=== PATIENT | male | born 1960 | race Caucasian/White ===

== ENCOUNTER 2016-08-13 16:55 | Emergency (ER) | payer OTHER, MEDICAID ==
[2016-08-13 17:06] VITALS: BP 108/77; PULSE 110; RESP 20; TEMP 98.1; O2SAT 94
[2016-08-13] MEDS ORDERED: TDAP ADULT 0.5 ML INJ (BOOSTRIX) IM ONE (17:56)
--- NOTE | 2016-08-13 17:56 | EDPHY ---
General Narrative: CHIEF COMPLAINT: Finger laceration HISTORY OF PRESENT ILLNESS: laceration to the left ring finger that occurred at 12:30 p.m. today. This was while opening a can of coffee. It was on the metal rim. Laceration involving the tuft of the left ring finger on the volar side. [id number] pain. No pain at rest. Worse with palpation and movement. Does not radiate. No numbness or tingling. No flexor deficits. He is only applied pressure and no other treatment. No other associated complaints or modifying factors. Tetanus status is uncertain. 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 REVIEW OF SYSTEMS: Ten systems reviewed and are negative unless otherwise noted in the HPI EXAMINATION General Appearance: Alert, no distress, unkempt Cardiovascular: Pulses normal throughout With symmetric radial pulses 2+. Brisk cap refill Neurological: A&O, sensory symmetric, strength symmetric Skin: Warm and dry . There is a curvilinear laceration over the left ring finger volar. Approximately 1.25 cm total and reactive no foreign body. Brisk cap refill and neuro intact. Extremities: Mild tenderness to palpation of the left ring finger. There is full flexion including the superficialis and profundus. No foreign body in the wound bed. Neurovascular intact. Psychiatric: Mood and affect normal MDM: 5:55 p.m. laceration of the tuft of the left ring finger, volar. This was by cough began approximately 5 hours ago. There is dried blood around the wound but no foreign body appreciated. No glass involved. Neurovascular intact with full flexion extension of the finger and good sensation. I have applied a digital block. We will irrigate the wound and suture repair. 6:25 p.m. finger tip laceration that has been closed without complication. I discussed wound care with the patient. He will be placed into gauze. He will follow up here or at [facility] for suture removal in 7-10 days. Return here for any signs of infection as discussed. Ibuprofen as needed every 6-8 hours for pain after the anesthesia wears off. Discharged home neurovascular intact after the procedure and in good condition. PROCEDURE: Digital Block Indication: Finger laceration Consent: Verbal Location:Left ring finger Anesthesia: Lidocaine 1% plain, 0.25% Marcaine plain, 5mL Description: after the skin was prepped with chlorhexidine wipe, 5 mL above were infused. There is good anesthesia. Good hemostasis. Neurovascular intact after the procedure. Complications: None PROCEDURE: Laceration repair Consent: Verbal Location: The left ring finger tuft, volar Length of repair: 1.25 cm Complexity: simple Layer involvement: single Anesthesia: digital block as above Irrigation: Extensive Debridement: none Procedure description: after digital block anesthesia, the wound was irrigated in the wound bed was explored. No foreign body. The wound was then closed with 5-0 Ethilon simple interrupted sutures. Good hemostasis. Good approximation. Tolerated well without complication. Suture/Staple material: 5-0 ethilon, Five simple interrupted sutures Wound care: Routine as discussed Suture/Staple removal: 7-10 Days ED Precautions: Worsening pain. Erythema, edema, cyanosis, pallor, paresthesia or anesthesia. SUPERVISION: This patient was independently evaluated without the aide of supervising physician. - History Smoking Status: Current every day smoker - Objective Vital Signs: Initial Vital Signs Temperature (C) 98.1 F 08/13/16 17:00 Heart Rate 110 H 08/13/16 17:00 Respiratory Rate 20 08/13/16 17:00 Blood Pressure 108/77 08/13/16 17:00 O2 Sat (%) 94 08/13/16 17:00 Allergies/Adverse Reactions: divalproex sodium [From Depakote ER] Allergy (Unknown, Verified 05/27/13 09:55) Unknown haloperidol [From Haldol] Allergy (Unknown, Verified 05/27/13 09:55) Unknown haloperidol lactate [From Haldol] Allergy (Unknown, Verified 05/27/13 09:55) Unknown loxapine HCl [From Loxitane] Allergy (Unknown, Verified 05/27/13 09:55) Unknown loxapine succinate [From Loxitane] Allergy (Unknown, Verified 05/27/13 09:55) Unknown penicillin V potassium [From Pen-Vee K] Allergy (Unknown, Verified 05/27/13 09: 55) Unknown Home Medications: Medication Instructions Recorded cloZAPine [Clozaril (*)] 200 mg PO DAILY #60 tab 06/12/15 cloZAPine [Clozaril (*)] 400 mg PO DAILY@1600 #120 tab 06/12/15 lamoTRIgine [LamICTAL 100 MG (*)] 100 mg PO 0900,1600 #60 tab 06/12/15 Ibuprofen 600 mg PO Q8 PRN #15 tablet 08/13/16 Departure - Departure Disposition: Home, Routine, Self-Care Clinical Impression: Finger laceration Qualifiers: Encounter type: initial encounter Qualified Code(s): S61.219A - Laceration without foreign body of unspecified finger without damage to nail, initial encounter Condition: Good Instructions: Ibuprofen (By mouth), Care For Your Stitches (ED), Laceration (ED ) Additional Instructions: Follow-up with [facility] or here in 7-10 days for suture removal. Return sooner for signs of infection as discussed. Referrals: NONE *PRIMARY CARE P,. [Primary Care Provider] - As per Instructions [facility],. [Clinic] - As per Instructions Prescriptions: Ibuprofen 600 mg PO Q8 PRN #15 tablet PRN Reason: Pain, Mild
[2016-08-13] MEDS ORDERED: IBUPROFEN 600 MG TAB PO ONE (18:23)
== END 2016-08-13 18:39 | disposition home or self-care (01) ==
PROC: 0HQGXZZ Repair Left Hand Skin, External Approach (ICD-10-PCS; principal; 2016-08-13)
DX: S61.215A Laceration without foreign body of left ring finger without damage to nail, initial encounter (principal); F17.200 Nicotine dependence, unspecified, uncomplicated; Z23 Encounter for immunization; W45.8XXA Other foreign body or object entering through skin, initial encounter

== ENCOUNTER 2018-02-24 06:57 | Emergency (ER) | payer OTHER, MEDICAID ==
--- NOTE | 2018-02-24 07:09 | EDPHY ---
H & P Time Seen by Provider: 02/24/18 07:05 HPI/ROS: CHIEF COMPLAINT: "I hurt all over" HISTORY OF PRESENT ILLNESS: The patient is brought into the emergency department by paramedics. The patient was found laying in the hallway with malaise and fatigue. The patient has schizophrenia. EMS reported ? CO detected on his pulse oximetry. According to the fire department there was no elevated CO levels at the department. The patient denies any history of fall or trauma. He reports having "pain all over" which she attributes to soak that he purchased at [employer]. The patient denies any additional acute complaints. REVIEW OF SYSTEMS: A comprehensive 10 point review of systems is otherwise negative aside from elements mentioned in the history of present illness. Source: Patient Exam Limitations: No limitations - Medical/Surgical History Hx Asthma: No Hx Chronic Respiratory Disease: No Hx Diabetes: No Hx Cardiac Disease: No Hx Renal Disease: No Hx Cirrhosis: No Hx Alcoholism: No Hx HIV/AIDS: No Hx Splenectomy or Spleen Trauma: No Other PMH: Schizophrenia - Social History Smoking Status: Current every day smoker - Physical Exam Exam: General Appearance: Disheveled, cachectic Eyes: Pupils equal and round no pallor or injection ENT, Mouth: Poor dentition Respiratory: There are no retractions, lungs are clear to auscultation Cardiovascular: Regular rate and rhythm Gastrointestinal: Abdomen is soft and nontender, no masses, bowel sounds normal Neurological: Grossly normal motor exam Skin: Warm and dry, no rashes Musculoskeletal: Neck is supple nontender Extremities: symmetrical, full range of motion Psychiatric: Patient is oriented X 3, there is no agitation Constitutional: Initial Vital Signs Temperature (C) 36.7 C 02/24/18 07:03 Heart Rate 85 02/24/18 07:03 Respiratory Rate 20 02/24/18 07:03 Blood Pressure 111/70 02/24/18 07:03 O2 Sat (%) 99 02/24/18 07:03 O2 Delivery Mode Room Air O2 (L/minute) 15 Allergies/Adverse Reactions: divalproex sodium [From Depakote ER] Allergy (Unknown, Verified 02/24/18 07:03) Unknown haloperidol [From Haldol] Allergy (Unknown, Verified 02/24/18 07:03) Unknown haloperidol lactate [From Haldol] Allergy (Unknown, Verified 02/24/18 07:03) Unknown loxapine HCl [From Loxitane] Allergy (Unknown, Verified 02/24/18 07:03) Unknown loxapine succinate [From Loxitane] Allergy (Unknown, Verified 02/24/18 07:03) Unknown penicillin V potassium [From Pen-Vee K] Allergy (Unknown, Verified 02/24/18 07: 03) Unknown Home Medications: Medication Instructions Recorded cloZAPine [Clozaril (*)] 200 mg PO DAILY #60 tab 06/12/15 cloZAPine [Clozaril (*)] 400 mg PO DAILY@1600 #120 tab 06/12/15 lamoTRIgine [LamICTAL 100 MG (*)] 100 mg PO 0900,1600 #60 tab 06/12/15 Ibuprofen 600 mg PO Q8 PRN #15 tablet 08/13/16 Medical Decision Making ED Course/Re-evaluation: The patient presents to the ED with for evaluation of generalized weakness. There is a questionable finding of a elevated carboxyhemoglobin noted on oximetry with EMS. Patient was noted to have a normal carboxyhemoglobin consistent with his known smoking status. Workup in the emergency department demonstrated only evidence of mild dehydration with a slightly elevated BUN. Patient had no evidence of significant metabolic derangement. The patient was given a meal in the emergency department. He is drinking without any vomiting. He is ambulatory. The patient will be discharged from the emergency department. He does have a history of schizophrenia. We did contact [facility]. They will make arrangements to pick the patient up as he does have an appointment with his prescriber today. Differential Diagnosis: Differential diagnosis considered includes febrile illness, dehydration, metabolic derangement, anemia, carboxyhemoglobinemia - Data Points Laboratory Results: Laboratory Results 02/24/18 06:40 02/24/18 06:40 02/24/18 02/24/18 02/24/18 07:00 06:40 06:40 WBC 5.63 10^3/uL 10^3/uL (3.80-9.50) RBC 4.93 10^6/uL 10^6/uL (4.40-6.38) Hgb 15.8 g/dL g/dL (13.7-17.5) Hct 45.2 % % (40.0-51.0) MCV 91.7 fL fL (81.5-99.8) MCH 32.0 pg pg (27.9-34.1) MCHC 35.0 g/dL g/dL (32.4-36.7) RDW 13.9 % % (11.5-15.2) Plt Count 167 10^3/uL 10^3/uL (150-400) MPV 11.3 fL fL (8.7-11.7) Neut % (Auto) 62.5 % % (39.3-74.2) Lymph % (Auto) 20.1 % % (15.0-45.0) Fannin % (Auto) 16.0 % H % (4.5-13.0) Eos % (Auto) 0.0 % L % (0.6-7.6) Baso % (Auto) 0.5 % % (0.3-1.7) Nucleat RBC Rel Count 0.0 % % (0.0-0.2) Absolute Neuts (auto) 3.52 10^3/uL 10^3/uL (1.70-6.50) Absolute Lymphs (auto) 1.13 10^3/uL 10^3/uL (1.00-3.00) Absolute Monos (auto) 0.90 10^3/uL H 10^3/uL (0.30-0.80) Absolute Eos (auto) 0.00 10^3/uL L 10^3/uL (0.03-0.40) Absolute Basos (auto) 0.03 10^3/uL 10^3/uL (0.02-0.10) Absolute Nucleated RBC 0.00 10^3/uL 10^3/uL (0-0.01) Immature Gran % 0.9 % % (0.0-1.1) Immature Gran # 0.05 10^3/uL 10^3/uL (0.00-0.10) Carboxyhemoglobin 2.8 % H % (0-1.5) Sodium 138 mEq/L mEq/L (135-145) Potassium 3.7 mEq/L mEq/L (3.3-5.0) Chloride 98 mEq/L mEq/L (97-110) Carbon Dioxide 28 mEq/l mEq/l (22-31) Anion Gap 12 mEq/L mEq/L (8-16) BUN 41 mg/dL H mg/dL (7-23) Creatinine 1.3 mg/dL mg/dL (0.7-1.3) Estimated GFR 57 Glucose 140 mg/dL H mg/dL (70-100) Calcium 10.0 mg/dL mg/dL (8.5-10.4) Departure - Departure Disposition: Home, Routine, Self-Care Clinical Impression: Dehydration, Schizophrenia Condition: Good Instructions: Dehydration (ED) Additional Instructions: 1. Please try and increase your fluid intake. 2. Please follow up with your primary care provider as scheduled. 3. Please return to the emergency department for markedly worsening symptoms or other concerns. Referrals: [facility],. [Clinic] - As per Instructions
[2018-02-24 07:18] LABS: PLATELET COUNT 167 10^3/uL (150-400)
[2018-02-24 08:27] VITALS: BP 95/70
== END 2018-02-24 08:51 | disposition home or self-care (01) ==
LOC: EDUNIT#
DX: R53.81 Other malaise (principal); R53.83 Other fatigue; F20.9 Schizophrenia, unspecified; E86.0 Dehydration; F17.200 Nicotine dependence, unspecified, uncomplicated

== ENCOUNTER 2018-08-10 11:01 | Inpatient (IN) | payer OTHER, MEDICAID ==
[2018-08-10] MEDS ORDERED: NS 1,000 ML IV ONE (11:54)
[2018-08-10] MEDS ORDERED: methylPREDNISolone SOD SUCC 125 MG/2 ML VIAL IVP ONE (11:59)
[2018-08-10] MEDS ORDERED: IPRATROPIUM/ALBUTEROL 3 ML DEYVIAL IH ONE (11:59)
[2018-08-10] MEDS ORDERED: NS 2,100 ML IV ONE (12:07)
--- NOTE | 2018-08-10 12:07 | EDPHY ---
H & P Stated Complaint: cough, hypoxia Time Seen by Provider: 08/10/18 11:53 HPI/ROS: CHIEF COMPLAINT: Cough, shortness of breath HISTORY OF PRESENT ILLNESS: 57-year-old male with schizophrenia presents with cough and shortness of breath. Onset of a productive cough 2 weeks ago, gradually worsening. Now associated with shortness of breath and chills. Shortness of breath at rest, increases with exertion. No documented fever. No sore throat or runny nose. Unsure if he received a flu vaccination this year. REVIEW OF SYSTEMS: complete 10 point ROS reviewed and is negative except for the noted elements in the HPI Source: Patient - Personal History Current Tetanus/Diphtheria Vaccine: Unsure - Medical/Surgical History Hx Asthma: No Hx Chronic Respiratory Disease: No Hx Diabetes: No Hx Cardiac Disease: No Hx Renal Disease: No Hx Cirrhosis: No Hx Alcoholism: No Hx HIV/AIDS: No Hx Splenectomy or Spleen Trauma: No Other PMH: Schizophrenia - Social History Smoking Status: Current every day smoker Alcohol Use: Sober Drug Use: None Additional Social History: homeless - Physical Exam Exam: General Appearance: Alert, pleasant, appears fatigued, disheveled Eyes: Pupils equal and round, no conjunctival pallor ENT, Mouth: Mucous membranes slightly dry Neck: Normal inspection Respiratory: tachypnea, diffuse expiratory wheezing Cardiovascular: Regular tachycardia Gastrointestinal: Abdomen is soft and nontender Neurological: A&O, nonfocal exam Skin: Warm and dry, no rash Extremities: Nontender, no pedal edema Psychiatric: odd affect Constitutional: Initial Vital Signs Temperature (C) 37.1 C 08/10/18 11:06 Heart Rate 114 H 08/10/18 11:06 Respiratory Rate 24 H 08/10/18 11:06 Blood Pressure 90/71 L 08/10/18 11:06 O2 Sat (%) 78 L 08/10/18 11:06 O2 Delivery Mode Oxymask O2 (L/minute) 5 Allergies/Adverse Reactions: divalproex sodium [From Depakote ER] Allergy (Unknown, Verified 08/10/18 11:05) Unknown haloperidol [From Haldol] Allergy (Unknown, Verified 08/10/18 11:05) Unknown haloperidol lactate [From Haldol] Allergy (Unknown, Verified 08/10/18 11:05) Unknown loxapine HCl [From Loxitane] Allergy (Unknown, Verified 08/10/18 11:05) Unknown loxapine succinate [From Loxitane] Allergy (Unknown, Verified 08/10/18 11:05) Unknown penicillin V potassium [From Pen-Vee K] Allergy (Unknown, Verified 08/10/18 11: 05) Unknown Home Medications: Medication Instructions Recorded cloZAPine [Clozaril (*)] 300 mg PO DAILY 08/10/18 cloZAPine [Clozaril (*)] 350 mg PO HS 08/10/18 fluPHENAZine HCL [FLUPHENAZINE HCL] 10 mg PO DAILY 08/10/18 fluPHENAZine HCL [FLUPHENAZINE HCL] 15 mg PO HS 08/10/18 lamoTRIgine [LamICTAL 100 MG (*)] 100 mg PO BID 08/10/18 metFORMIN HCL [Glucophage 500 mg 500 mg PO BIDMEAL 08/10/18 (*)] Medical Decision Making - Diagnostics Imaging Results: CXR: BLL pneumonia Imaging: Discussed imaging studies w/ scallop shucker Radiologist ED Course/Re-evaluation: This patient presents with cough, subjective fever and hypoxia. Initial O2 sat 78%, placed on an oximask; repeat O2 sat 94%. On exam he has diffuse wheezing. A DuoNeb and Solu-Medrol 125 mg IV given. Improved air exchange and diminished wheezing after the duoneb. Chest x-ray reveals BLL infiltrates. Rocephin and Zithromax IV given. He meets SIRS criteria with tachycardia and tachypnea. Initial lactate is 0.8, repeat lactate 1.2. Initial BP 90/71, borderline hypotension, IV NS given per the sepsis protocol, after which pt's SBP 120's. The hospitalist service was consulted for admission. This pt utilized 35 minutes of critical care time exclusive of unbundled procedures. Brice spent in serial assessments, lab/imaging/medication ordering, discussion with consultants. Organ at risk: lungs Differential Diagnosis: includes though not limited to pulm edema, empyema, PE, acute bronchitis - Data Points Laboratory Results: Laboratory Results 08/10/18 11:31 08/10/18 11:31 Microbiology Results: MICROBIOLOGY 08/10/18 11:31 Blood Blood Culture - Preliminary 08/10/18 12:04 Blood Blood Culture - Preliminary Medications Given: Acetaminophen (Tylenol) 650 mg PO Q4HRS PRN PRN Reason: Pain, Mild/Fever, Can Take PO Stop: 02/06/19 12:19 Last Admin: 08/13/18 02:00 Dose: 650 mg Albuterol/Ipratropium (Duoneb) 3 ml IH QID [facility] Stop: 02/06/19 15:59 Last Admin: 08/13/18 11:13 Dose: 3 ml Azithromycin (Zithromax) 250 mg PO DAILY [facility] PRN Reason: Protocol Stop: 09/12/18 08:59 Last Admin: 08/13/18 08:34 Dose: 250 mg Clozapine (Clozaril) 300 mg PO DAILY [facility] Stop: 02/07/19 08:59 Last Admin: 08/13/18 08:34 Dose: 300 mg Clozapine (Clozaril) 350 mg PO HS [facility] Stop: 02/07/19 20:59 Last Admin: 08/12/18 21:33 Dose: 350 mg Enoxaparin Sodium (Lovenox) 40 mg SC DAILY [facility] Stop: 02/07/19 08:59 Last Admin: 08/13/18 08:35 Dose: 40 mg Fluphenazine HCl (Prolixin) 10 mg PO DAILY [facility] Stop: 02/07/19 08:59 Last Admin: 08/13/18 08:35 Dose: 10 mg Fluphenazine HCl (Prolixin) 15 mg PO HS [facility] Stop: 02/06/19 20:59 Last Admin: 08/12/18 21:34 Dose: 15 mg Insulin Human Lispro (Humalog Lispro) 0 unit SC TIDMEAL [facility] PRN Reason: Protocol Stop: 02/07/19 07:59 Last Admin: 08/13/18 12:20 Dose: Not Given Lamotrigine (Lamictal) 100 mg PO BID [facility] Stop: 02/06/19 20:59 Last Admin: 08/13/18 08:34 Dose: 100 mg Lorazepam (Ativan Injection) 0.5 - 1 mg IVP Q6HRS PRN PRN Reason: Nausea/Vomiting, Use 2nd Stop: 02/07/19 22:34 Last Admin: 08/12/18 04:42 Dose: 0.5 mg Nicotine (Nicoderm Cq) 14 mg TD DAILY [facility] Stop: 02/06/19 14:29 Last Admin: 08/13/18 08:35 Dose: 14 mg Prednisone (Prednisone) 40 mg PO DAILY [facility] Stop: 02/09/19 08:59 Last Admin: 08/13/18 08:35 Dose: 40 mg Fluticasone/Salmeterol (Advair) 1 puffs IH BID [facility] Stop: 02/08/19 20:59 Last Admin: 08/13/18 11:07 Dose: 1 puffs Discontinued Medications Albuterol/Ipratropium (Duoneb) 3 ml IH EDNOW ONE Stop: 08/10/18 12:00 Last Admin: 08/10/18 12:28 Dose: 3 ml Azithromycin (Zithromax) 500 mg PO ONCE ONE PRN Reason: Protocol Stop: 08/12/18 16:41 Last Admin: 08/12/18 17:48 Dose: 500 mg Sodium Chloride (Ns) 1,000 mls @ 0 mls/hr IV ONCE ONE; Wide Open PRN Reason: Protocol Stop: 08/10/18 11:55 Last Admin: 08/10/18 12:34 Dose: Not Given Sodium Chloride (Ns) 2,100 mls @ 4,200 mls/hr 30 ml/kg infuse over 30 min ( 2100 ml) IV EDNOW ONE PRN Reason: Protocol Stop: 08/10/18 12:36 Last Admin: 08/10/18 12:31 Dose: 2,100 mls Azithromycin 500 mg/ Sodium (Chloride) 255 mls @ 255 mls/hr IV EDNOW ONE PRN Reason: Protocol Stop: 08/10/18 13:08 Last Admin: 08/10/18 12:43 Dose: 255 mls Ceftriaxone Sodium/Dextrose (Rocephin 1 Gm (Premix)) 50 mls @ 100 mls/hr IV EDNOW ONE PRN Reason: Protocol Stop: 08/10/18 12:37 Last Admin: 08/10/18 12:19 Dose: 50 mls Sodium Chloride (Ns) 1,000 mls @ 75 mls/hr IV CONT [facility] Stop: 02/06/19 12:29 Last Admin: 08/12/18 01:46 Dose: 1,000 mls Methylprednisolone Sodium Succinate (Solu-Medrol) 125 mg IVP EDNOW ONE Stop: 08/10/18 12:00 Last Admin: 08/10/18 12:22 Dose: 125 mg Methylprednisolone Sodium Succinate (Solu-Medrol) 60 mg IVP Q6HRS [facility] Stop: 08/12/18 19:00 Last Admin: 08/12/18 17:47 Dose: 60 mg Ondansetron HCl (Zofran) 4 mg IVP Q4HRS PRN PRN Reason: Nausea/Vomiting, Can't Take PO Stop: 02/06/19 12:19 Last Admin: 08/11/18 21:16 Dose: 4 mg Ondansetron HCl (Zofran Odt) 4 mg PO Q4HRS PRN PRN Reason: Nausea/Vomiting, Use 1st Stop: 02/06/19 12:19 Last Admin: 08/11/18 19:15 Dose: 4 mg Departure - Departure Disposition: [facility]
[2018-08-10] MEDS ORDERED: AZITHROMYCIN IV 500 MG in NS 250 ML IV ONE (12:09)
[2018-08-10 12:12] LABS: PLATELET COUNT 213 10^3/uL (150-400)
[2018-08-10] MEDS ORDERED: ONDANSETRON 4 MG/2 ML VIAL IVP PRN (12:20)
[2018-08-10] MEDS ORDERED: ONDANSETRON DISINTEGRATING 4 MG TAB PO PRN (12:20)
[2018-08-10] MEDS ORDERED: ALBUTEROL 3 ML DEYVIAL IH PRN (12:20)
[2018-08-10] MEDS: NICOTINE 14 MG/24 HR PATCH TD SCH (14:33)
--- NOTE | 2018-08-10 15:27 | PDGENHP ---
History and Physical - Chief Complaint Shortness of breath - History of Present Illness 57-year-old male past medical history of tobacco abuse, schizophrenia presented to the ER with complaints of shortness of breath which had been ongoing for at least the last week and half. He says that over the last 10-15 days he has had increased shortness of breath. He has an intermittent cough which is mostly dry. He denies any chest pain. He did endorse subjective fevers and chills. No recent sick contacts. No recent travel. He continues to smoke tobacco. History Information - Allergies/Home Medication List Allergies/Adverse Reactions: divalproex sodium [From Depakote ER] Allergy (Unknown, Verified 08/10/18 11:05) Unknown haloperidol [From Haldol] Allergy (Unknown, Verified 08/10/18 11:05) Unknown haloperidol lactate [From Haldol] Allergy (Unknown, Verified 08/10/18 11:05) Unknown loxapine HCl [From Loxitane] Allergy (Unknown, Verified 08/10/18 11:05) Unknown loxapine succinate [From Loxitane] Allergy (Unknown, Verified 08/10/18 11:05) Unknown penicillin V potassium [From Pen-Vee K] Allergy (Unknown, Verified 08/10/18 11: 05) Unknown Home Medications: cloZAPine [Clozaril (*)] 300 mg PO DAILY 08/10/18 [Last Taken Unknown] cloZAPine [Clozaril (*)] 350 mg PO DAILY 08/10/18 [Last Taken Unknown] fluPHENAZine HCL [FLUPHENAZINE HCL] 10 mg PO DAILY 08/10/18 [Last Taken Unknown] fluPHENAZine HCL [FLUPHENAZINE HCL] 15 mg PO HS 08/10/18 [Last Taken Unknown] lamoTRIgine [LamICTAL 100 MG (*)] 100 mg PO BID 08/10/18 [Last Taken Unknown] metFORMIN HCL [Glucophage 500 mg (*)] 500 mg PO BIDMEAL 08/10/18 [Last Taken Unknown] I have personally reviewed and updated: family history, medical history, social history, surgical history - Past Medical History Additional medical history: schizophrenia - Surgical History Reports: no pertinent surgical hx - Family History Positive for: non-pertinent - Social History Smoking Status: Current every day smoker Review of Systems Review of Systems: ROS: 10pt was reviewed & negative except for what was stated in HPI & below Physical Exam Physical Exam: Temp Pulse Resp BP Pulse Ox 37.1 C 97 20 127/87 H 92 08/10/18 14:04 08/10/18 14:04 08/10/18 14:04 08/10/18 14:04 08/10/18 14:04 O2 (L/minute) 5 Constitutional: no apparent distress, appears nourished, not in pain Eyes: PERRL, anicteric sclera, EOMI Ears, Nose, Mouth, Throat: moist mucous membranes, hearing normal, ears appear normal, no oral mucosal ulcers Cardiovascular: regular rate and rhythym, no murmur, rub, or gallop, No edema Respiratory: reduced air movement, expiratory wheeze, inspiratory crackles Gastrointestinal: normoactive bowel sounds, soft, non-tender abdomen, no palpable masses Genitourinary: no bladder fullness, no bladder tenderness Skin: warm, normal color, no rashes or abrasions, no fluctuance, no induration, No mottled Musculoskeletal: full muscle strength, no muscle tenderness, normal joint ROM, no joint effusions Psychiatric: interacting appropriately, not anxious, not encephalopathic, thought process linear Lymph, Heme, Immunologic: no cervical LAD, no supraclavicular LAD Lab Data & Imaging Review 08/10/18 11:31 08/10/18 11:31 WBC 11.12 10^3/uL (3.80-9.50) H 08/10/18 11:31 RBC 4.43 10^6/uL (4.40-6.38) 08/10/18 11:31 Hgb 13.7 g/dL (13.7-17.5) 08/10/18 11:31 Hct 41.8 % (40.0-51.0) 08/10/18 11:31 MCV 94.4 fL (81.5-99.8) 08/10/18 11:31 MCH 30.9 pg (27.9-34.1) 08/10/18 11:31 MCHC 32.8 g/dL (32.4-36.7) 08/10/18 11:31 RDW 14.1 % (11.5-15.2) 08/10/18 11:31 Plt Count 213 10^3/uL (150-400) 08/10/18 11:31 MPV 10.0 fL (8.7-11.7) 08/10/18 11:31 Neut % (Auto) 81.6 % (39.3-74.2) H 08/10/18 11:31 Lymph % (Auto) 5.5 % (15.0-45.0) L 08/10/18 11:31 [place] % (Auto) 12.1 % (4.5-13.0) 08/10/18 11:31 Eos % (Auto) 0.0 % (0.6-7.6) L 08/10/18 11:31 Baso % (Auto) 0.4 % (0.3-1.7) 08/10/18 11:31 Nucleat RBC Rel Count 0.0 % (0.0-0.2) 08/10/18 11:31 Absolute Neuts (auto) 9.08 10^3/uL (1.70-6.50) H 08/10/18 11:31 Absolute Lymphs (auto) 0.61 10^3/uL (1.00-3.00) L 08/10/18 11:31 Absolute Monos (auto) 1.34 10^3/uL (0.30-0.80) H 08/10/18 11:31 Absolute Eos (auto) 0.00 10^3/uL (0.03-0.40) L 08/10/18 11:31 Absolute Basos (auto) 0.04 10^3/uL (0.02-0.10) 08/10/18 11:31 Absolute Nucleated RBC 0.00 10^3/uL (0-0.01) 08/10/18 11:31 Immature Gran % 0.4 % (0.0-1.1) 08/10/18 11:31 Immature Gran # 0.05 10^3/uL (0.00-0.10) 08/10/18 11:31 VBG Lactic Acid 1.2 mmol/L (0.7-2.1) 08/10/18 15:03 Sodium 140 mEq/L (135-145) 08/10/18 11:31 Potassium 4.5 mEq/L (3.5-5.2) 08/10/18 11:31 Chloride 102 mEq/L (97-110) 08/10/18 11:31 Carbon Dioxide 28 mEq/l (22-31) 08/10/18 11:31 Anion Gap 10 mEq/L (6-14) 08/10/18 11:31 BUN 22 mg/dL (7-23) 08/10/18 11:31 Creatinine 1.1 mg/dL (0.7-1.3) 08/10/18 11:31 Estimated GFR > 60 08/10/18 11:31 Glucose 125 mg/dL (70-100) H 08/10/18 11:31 Calcium 9.3 mg/dL (8.5-10.4) 08/10/18 11:31 Assessment & Plan Assessment: Acute hypoxemic respiratory failure- likely secondary to parainfluenza virus/ rhino virus. Also sounds wheezy with diminished air movement on examination. Chest x-ray showing bilateral lower lobe pneumonias. I discussed the case with the emergency room physician who gave the patient Rocephin and azithromycin along with Solu-Medrol. -continue Solu-Medrol -duo nebs -oxygen p.r.n. -check procalcitonin Pneumonia- likely viral pneumonia secondary to parainfluenza/rhino virus. Chest x-ray with bilateral lower lobe pneumonia, started on Rocephin in the emergency room -hold further antibiotics -check procalcitonin -oxygen, duo nebs Schizophrenia- takes Clozaril and Prolixin along with Lamictal. Will have pharmacy confirm dose and restart Type 2 diabetes- on metformin. Hold and cover with sliding scale insulin Prophylaxis- SCDs and heparin Fluids- intravenous saline Electrolytes- within normal limits Nutrition- regular Cor- full Dispo- inpatient
[2018-08-10] MEDS: IPRATROPIUM/ALBUTEROL 3 ML DEYVIAL IH SCH ×2 (15:47→21:28)
--- NOTE | 2018-08-10 17:59 | PDMN ---
Medical Necessity [place] [facility] [place], A-2 days: 57 yo w/ SOB in acute hypoxemic resp fx (79% ra) likely secondary to parainfluenza virus/rhino virus and BLL pneumonia. Pt is tachycardic 114, RR 24, hypotensive SBP 90, placed on O2, nebs started, IV steroids and IVF started. BC pending. Anticipate>2MN for ongoing monitoring and tx of the above. Hx schizophrenia, smoker
[2018-08-10] MEDS: methylPREDNISolone SOD SUCC 125 MG/2 ML VIAL IVP SCH (18:06)
[2018-08-10] MEDS: lamoTRIgine 100 MG TAB PO SCH (20:13)
[2018-08-10] MEDS ORDERED: D50W 25 GM/50 ML VIAL IVP PRN (21:14)
[2018-08-11] MEDS: methylPREDNISolone SOD SUCC 125 MG/2 ML VIAL IVP SCH ×5 (01:05→23:48)
[2018-08-11] MEDS: NS 1,000 ML IV SCH ×2 (01:05→13:49)
[2018-08-11 05:27] LABS: PLATELET COUNT 211 10^3/uL (150-400)
[2018-08-11] MEDS: IPRATROPIUM/ALBUTEROL 3 ML DEYVIAL IH SCH ×4 (05:31→22:27)
[2018-08-11] MEDS: INSULIN LISPRO 100 UNIT/ML SC SCH ×3 (08:01→17:14)
[2018-08-11] MEDS: NICOTINE 14 MG/24 HR PATCH TD SCH (08:08)
[2018-08-11] MEDS: cloZAPine 100 MG TAB PO SCH ×2 (08:10→20:08)
[2018-08-11] MEDS: lamoTRIgine 100 MG TAB PO SCH ×2 (08:10→20:08)
[2018-08-11] MEDS: ENOXAPARIN 40 MG/0.4 ML SYR SC SCH (08:15)
[2018-08-11] MEDS ORDERED: cloZAPine 100 MG TAB PO SCH (09:00)
--- NOTE | 2018-08-11 10:56 | ASMTCMCOM ---
CM Note CM Note Notes: Pt is a 57 y/o female admitted for shortness of breath. Pt has a schizophrenia diagnose. Pt is currently on Clorazil and it is being prescribed by Cedric Kessler, a psychiatrist here in [place]. Referral made to [facility]. Pt will most likely d/c independent without any needs. CM available for changes. Plan: Independent Date Signed: 08/11/2018 10:56 AM Electronically Signed By:SHERICE Shin
--- NOTE | 2018-08-11 13:03 | HOSPPROG ---
Hospitalist Progress Note Assessment/Plan: 57 year old schizophrenic male admitted with COPD exacerbation and viral pneumonia Acute hypoxemic respiratory failure- likely secondary to parainfluenza virus/ rhino virus. Also sounds wheezy with diminished air movement on examination. procalcitonin negative, and he has continued to improve overnight. -continue Solu-Medrol -duo nebs -oxygen p.r.n. -check procalcitonin Pneumonia- likely viral pneumonia secondary to parainfluenza/rhino virus. Chest x-ray with bilateral lower lobe pneumonia. started on abx in er. -hold further antibiotics -oxygen, duo nebs Schizophrenia- takes Clozaril and Prolixin along with Lamictal. continue. Type 2 diabetes- on metformin. Hold and cover with sliding scale insulin Prophylaxis- SCDs and heparin Fluids- intravenous saline Electrolytes- within normal limits Nutrition- regular Cor- full Dispo- inpatient Subjective: breathing better. Objective: Vital Signs Temp Pulse Resp BP Pulse Ox 36.8 C 98 18 102/57 L 90 L 08/11/18 11:28 08/11/18 11:28 08/11/18 11:28 08/11/18 11:28 08/11/18 11:28 Laboratory Results 08/11/18 04:55 08/11/18 04:55 08/10/18 08/11/18 08/12/18 05:59 05:59 05:59 Intake Total 2400 600 Balance 2400 600 - Physical Exam Constitutional: no apparent distress, appears nourished, not in pain Eyes: PERRL, anicteric sclera, EOMI Ears, Nose, Mouth, Throat: moist mucous membranes, hearing normal, ears appear normal, no oral mucosal ulcers Cardiovascular: regular rate and rhythym, no murmur, rub, or gallop Respiratory: expiratory wheeze Gastrointestinal: normoactive bowel sounds, soft, non-tender abdomen, no palpable masses Genitourinary: no bladder fullness, no bladder tenderness, no renal bruits Skin: no rashes or abrasions, no fluctuance, no induration Musculoskeletal: full muscle strength, no muscle tenderness, normal joint ROM Neurologic: AAOx3, sensation intact bilaterally Psychiatric: interacting appropriately, not anxious, not encephalopathic, thought process linear Lymph, Heme, Immunologic: no cervical LAD, no supraclavicular LAD ICD10 Worksheet Patient Problems: Problems Problem Status Onset Schizophrenia Acute
[2018-08-11] MEDS: LORazepam 2 MG/ML INJ IVP PRN (23:48)
[2018-08-12] MEDS: NS 1,000 ML IV SCH (01:46)
[2018-08-12] MEDS: LORazepam 2 MG/ML INJ IVP PRN (04:42)
[2018-08-12] MEDS: IPRATROPIUM/ALBUTEROL 3 ML DEYVIAL IH SCH ×4 (05:36→22:10)
[2018-08-12] MEDS: methylPREDNISolone SOD SUCC 125 MG/2 ML VIAL IVP SCH ×3 (07:03→17:47)
[2018-08-12] MEDS: INSULIN LISPRO 100 UNIT/ML SC SCH ×3 (08:46→17:47)
[2018-08-12] MEDS: ENOXAPARIN 40 MG/0.4 ML SYR SC SCH (09:24)
[2018-08-12] MEDS: lamoTRIgine 100 MG TAB PO SCH ×2 (09:24→21:34)
[2018-08-12] MEDS: cloZAPine 100 MG TAB PO SCH ×2 (09:25→21:33)
[2018-08-12] MEDS: NICOTINE 14 MG/24 HR PATCH TD SCH (09:25)
--- NOTE | 2018-08-12 13:16 | HOSPPROG ---
Hospitalist Progress Note Assessment/Plan: 57 year old schizophrenic male admitted with COPD exacerbation and viral pneumonia *Acute hypoxemic respiratory failure -secondary to parainfluenza virus/rhino virus -procalcitonin is negative -continue Solu-Medrol for another dose tonight, then start prednisone -duo nebs *COPD exacerbation with long hx of smoking -lungs cont to sound poorly, will add azithromycin -add Advair *Pneumonia- likely viral pneumonia secondary to parainfluenza/rhino virus *Schizophrenia -takes Clozaril, Prolixin and Lamictal *Type 2 diabetes -hold metformin -sliding scale *plan: get a chest xray, will dc iv steroids this evening and start oral prednisone tomorrow, add Azithromycin. Subjective: Edouard says he isn't feeling any better since being admitted. Objective: Vital Signs Temp Pulse Resp BP Pulse Ox 36.8 C 98 18 117/65 92 08/12/18 11:42 08/12/18 11:42 08/12/18 11:42 08/12/18 11:42 08/12/18 11:42 Laboratory Results 08/11/18 04:55 08/11/18 04:55 08/11/18 08/12/18 08/13/18 05:59 05:59 05:59 Intake Total 2400 2785 Balance 2400 2785 - Physical Exam Constitutional: not in pain, chronically ill appearing, unkempt Eyes: PERRL Ears, Nose, Mouth, Throat: hearing normal, poor dentition Cardiovascular: regular rate and rhythym Respiratory: expiratory wheeze, bronchial breath sounds, rhonchi (scattered throughout), No no respiratory distress (increase wob with talking) Skin: warm Musculoskeletal: generalized weakness Neurologic: AAOx3 Psychiatric: interacting appropriately ICD10 Worksheet Patient Problems: Problems Problem Status Onset Schizophrenia Acute
[2018-08-12] MEDS ORDERED: AZITHROMYCIN 250 MG TAB PO ONE (16:40)
[2018-08-12] MEDS: FLUTICASONE/SALMETER 250/50MCG DISKUS IH SCH (22:10)
[2018-08-13] MEDS: ACETAMINOPHEN 325 MG TAB PO PRN (02:00)
[2018-08-13] MEDS: IPRATROPIUM/ALBUTEROL 3 ML DEYVIAL IH SCH ×4 (05:16→21:16)
[2018-08-13] MEDS: INSULIN LISPRO 100 UNIT/ML SC SCH ×3 (08:26→18:01)
[2018-08-13] MEDS: AZITHROMYCIN 250 MG TAB PO SCH (08:34)
[2018-08-13] MEDS: lamoTRIgine 100 MG TAB PO SCH ×2 (08:34→20:12)
[2018-08-13] MEDS: cloZAPine 100 MG TAB PO SCH ×2 (08:34→20:12)
[2018-08-13] MEDS: NICOTINE 14 MG/24 HR PATCH TD SCH (08:35)
[2018-08-13] MEDS: ENOXAPARIN 40 MG/0.4 ML SYR SC SCH (08:35)
[2018-08-13] MEDS: predniSONE 20 MG TAB PO SCH (08:35)
[2018-08-13] MEDS: FLUTICASONE/SALMETER 250/50MCG DISKUS IH SCH ×2 (11:07→21:18)
--- NOTE | 2018-08-13 12:32 | HOSPPROG ---
Hospitalist Progress Note Assessment/Plan: 57 year old schizophrenic male admitted with COPD exacerbation and viral pneumonia *Acute hypoxemic respiratory failure -secondary to parainfluenza virus/rhino virus -procalcitonin is negative -dc Solu-Medrol, prednisone -duo nebs *COPD exacerbation with long hx of smoking -lungs cont to sound poorly, will add azithromycin -add Advair -will add a PPI, he may have some reflux disease contributing to his symptoms *Pneumonia- likely viral pneumonia secondary to parainfluenza/rhino virus *Schizophrenia -takes Clozaril, Prolixin and Lamictal *Type 2 diabetes -hold metformin -sliding scale *plan: continue current treatment, today is his first day up to walk in the hallways, encouraged him to get oob in the chair for all his meals Subjective: Edouard is feeling slightly better. Says "i don't want to and want everything done" Objective: Vital Signs Temp Pulse Resp BP Pulse Ox 37.3 C 95 18 136/86 H 93 08/13/18 11:27 08/13/18 11:27 08/13/18 11:27 08/13/18 11:27 08/13/18 11:27 Laboratory Results 08/11/18 04:55 08/11/18 04:55 08/12/18 08/13/18 08/14/18 05:59 05:59 05:59 Intake Total 2785 240 Balance 2785 240 - Physical Exam Constitutional: not in pain, chronically ill appearing Eyes: PERRL Ears, Nose, Mouth, Throat: hearing normal, other (sometimes difficult to understand) Respiratory: reduced air movement (bases), expiratory wheeze (scattered throughout), No no respiratory distress Skin: warm Musculoskeletal: generalized weakness Neurologic: AAOx3 Psychiatric: interacting appropriately, flat affect, poor insight ICD10 Worksheet Patient Problems: Problems Problem Status Onset Schizophrenia Acute
[2018-08-13] MEDS: PANTOPRAZOLE SODIUM 40 MG TAB PO SCH (14:26)
[2018-08-13] MEDS: MAG HYDROX/AL HYDROX/SIMETH 30 ML UDCUP PO PRN ×2 (15:08→20:18)
[2018-08-14] MEDS: IPRATROPIUM/ALBUTEROL 3 ML DEYVIAL IH SCH ×4 (05:36→21:02)
[2018-08-14] MEDS: INSULIN LISPRO 100 UNIT/ML SC SCH ×3 (08:59→17:41)
[2018-08-14] MEDS: ENOXAPARIN 40 MG/0.4 ML SYR SC SCH (09:00)
[2018-08-14] MEDS: NICOTINE 14 MG/24 HR PATCH TD SCH (09:09)
[2018-08-14] MEDS: PANTOPRAZOLE SODIUM 40 MG TAB PO SCH (09:09)
[2018-08-14] MEDS: cloZAPine 100 MG TAB PO SCH ×2 (09:10→20:12)
[2018-08-14] MEDS: AZITHROMYCIN 250 MG TAB PO SCH (09:10)
[2018-08-14] MEDS: lamoTRIgine 100 MG TAB PO SCH ×2 (09:10→20:13)
[2018-08-14] MEDS: predniSONE 20 MG TAB PO SCH (09:10)
[2018-08-14] MEDS: FLUTICASONE/SALMETER 250/50MCG DISKUS IH SCH ×2 (09:12→21:03)
[2018-08-14] MEDS: MAG HYDROX/AL HYDROX/SIMETH 30 ML UDCUP PO PRN ×2 (09:40→15:36)
--- NOTE | 2018-08-14 11:54 | HOSPPROG ---
Hospitalist Progress Note Assessment/Plan: 57 year old schizophrenic male admitted with COPD exacerbation and viral pneumonia *Acute hypoxemic respiratory failure -secondary to parainfluenza virus/rhino virus -procalcitonin is negative -prednisone -duo nebs *COPD exacerbation with long hx of smoking -lungs cont to sound poorly, azithromycin -add Advair -added PPI, he may have some reflux disease contributing to his symptoms *Pneumonia- likely viral pneumonia secondary to parainfluenza/rhino virus *nicotine dependence -patch *Schizophrenia -takes Clozaril, Prolixin and Lamictal -Clozaril level pending *Type 2 diabetes -hold metformin -sliding scale *plan: very slow to improve Subjective: Edouard said he was feeling better this morning, now it's the afternoon, not feeling as well. Objective: Vital Signs Temp Pulse Resp BP Pulse Ox 37.2 C 104 H 20 125/75 H 91 L 08/14/18 11:03 08/14/18 11:03 08/14/18 11:03 08/14/18 11:03 08/14/18 11:03 Laboratory Results 08/11/18 04:55 08/11/18 04:55 08/13/18 08/14/18 08/15/18 05:59 05:59 05:59 Intake Total 240 1560 Balance 240 1560 - Physical Exam Constitutional: chronically ill appearing, unkempt Eyes: PERRL Ears, Nose, Mouth, Throat: hearing normal, poor dentition Cardiovascular: regular rate and rhythym Respiratory: no respiratory distress, expiratory wheeze (scattered,today his lung sounds are improved) Skin: warm Musculoskeletal: generalized weakness Neurologic: AAOx3 Psychiatric: flat affect ICD10 Worksheet Patient Problems: Problems Problem Status Onset Schizophrenia Acute
[2018-08-14] MEDS: ACETAMINOPHEN 325 MG TAB PO PRN (20:12)
[2018-08-15] MEDS: IPRATROPIUM/ALBUTEROL 3 ML DEYVIAL IH SCH ×4 (05:54→20:28)
[2018-08-15] MEDS: lamoTRIgine 100 MG TAB PO SCH ×2 (08:12→21:04)
[2018-08-15] MEDS: INSULIN LISPRO 100 UNIT/ML SC SCH ×3 (08:12→17:44)
[2018-08-15] MEDS: cloZAPine 100 MG TAB PO SCH ×2 (08:13→21:04)
[2018-08-15] MEDS: ENOXAPARIN 40 MG/0.4 ML SYR SC SCH (08:13)
[2018-08-15] MEDS: predniSONE 20 MG TAB PO SCH (08:13)
[2018-08-15] MEDS: AZITHROMYCIN 250 MG TAB PO SCH (08:13)
[2018-08-15] MEDS: NICOTINE 14 MG/24 HR PATCH TD SCH (08:13)
[2018-08-15] MEDS: PANTOPRAZOLE SODIUM 40 MG TAB PO SCH (08:13)
[2018-08-15] MEDS: FLUTICASONE/SALMETER 250/50MCG DISKUS IH SCH ×2 (09:33→20:32)
--- NOTE | 2018-08-15 13:17 | HOSPPROG ---
Hospitalist Progress Note Assessment/Plan: 57 year old schizophrenic male admitted with COPD exacerbation and viral pneumonia *Acute hypoxemic respiratory failure -secondary to parainfluenza virus/rhino virus -procalcitonin is negative -prednisone -duo nebs *COPD exacerbation with long hx of smoking -lungs cont to sound poorly, azithromycin -add Advair -added PPI, he may have some reflux disease contributing to his symptoms *Pneumonia- likely viral pneumonia secondary to parainfluenza/rhino virus *nicotine dependence -patch *Schizophrenia -takes Clozaril, Prolixin and Lamictal -Clozaril level pending *Type 2 diabetes -hold metformin -sliding scale *plan: Edouard gets tachycardic w activity and continues to be hypoxic, will get a CTA to r/o any thrombosis. Subjective: Edouard said he is feeling ongoing short of breath. Objective: Vital Signs Temp Pulse Resp BP Pulse Ox 37.1 C 105 H 16 93/57 L 98 08/15/18 11:37 08/15/18 11:37 08/15/18 11:37 08/15/18 11:37 08/15/18 11:37 Laboratory Results 08/11/18 04:55 08/11/18 04:55 08/14/18 08/15/18 08/16/18 05:59 05:59 06:59 Intake Total 1560 Balance 1560 - Physical Exam Constitutional: not in pain, chronically ill appearing Eyes: PERRL Ears, Nose, Mouth, Throat: hearing normal Cardiovascular: regular rate and rhythym Respiratory: no respiratory distress, expiratory wheeze Gastrointestinal: normoactive bowel sounds Skin: warm Musculoskeletal: generalized weakness Neurologic: AAOx3 Psychiatric: flat affect ICD10 Worksheet Patient Problems: Problems Problem Status Onset Schizophrenia Acute
--- NOTE | 2018-08-15 16:32 | ASMTCMCOM ---
CM Note CM Note Notes: Spoke with pt in the room. Pt admitted for COPD exacerbation and PNA and may discharge with new home O2. Pt also has schizophrenia and lives alone in an apartment. PT and OT are recommending HHC. RN may also be indicated with new home O2. Pt amenable to [facility]. Referral sent. D/C date TBD. CM to follow. D/C Plan: Home with [facility] pending acceptance. Date Signed: 08/15/2018 04:32 PM Electronically Signed By:Ju Ambrocio
[2018-08-15] MEDS ORDERED: IOPAMIDOL (ISOVUE 370) 100 ML BTL IV ONE (20:44)
[2018-08-15] MEDS: ACETAMINOPHEN 325 MG TAB PO PRN (21:04)
[2018-08-16] MEDS: IPRATROPIUM/ALBUTEROL 3 ML DEYVIAL IH SCH ×4 (04:51→20:38)
[2018-08-16] MEDS: ENOXAPARIN 40 MG/0.4 ML SYR SC SCH (08:26)
[2018-08-16] MEDS: INSULIN LISPRO 100 UNIT/ML SC SCH ×3 (08:27→18:20)
[2018-08-16] MEDS: NICOTINE 14 MG/24 HR PATCH TD SCH (08:27)
[2018-08-16] MEDS: AZITHROMYCIN 250 MG TAB PO SCH (08:27)
[2018-08-16] MEDS: PANTOPRAZOLE SODIUM 40 MG TAB PO SCH (08:27)
[2018-08-16] MEDS: lamoTRIgine 100 MG TAB PO SCH ×2 (08:27→20:15)
[2018-08-16] MEDS: predniSONE 20 MG TAB PO SCH (08:27)
[2018-08-16] MEDS: cloZAPine 100 MG TAB PO SCH ×2 (08:27→20:15)
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
[2018-08-16] MEDS: FLUTICASONE/SALMETER 250/50MCG DISKUS IH SCH ×2 (10:39→20:39)
[2018-08-16] MEDS ORDERED: predniSONE 20 MG TAB PO SCH (12:35)
--- NOTE | 2018-08-16 18:13 | ASMTCMCOM ---
CM Note CM Note Notes: CM met with patient, he is likely to discharge tomorrow, O2 sat at 84 this morning. CM asked patient to ask about follow up. He states he is connected to Ba at [facility], he had her contact number in his wallet, and [facility] is [facility], . CM asked patient to confirm his address and phone number, patient stated his information is in his wallet and he does not remember. CM to place referral to [facility] for RN/PT/OT. CM to follow. D/C Plan: [facility] with [facility]. Date Signed: 08/16/2018 06:12 PM Electronically Signed By:Mindy Arguelles
[2018-08-17] MEDS: IPRATROPIUM/ALBUTEROL 3 ML DEYVIAL IH SCH ×2 (05:44→10:06)
[2018-08-17] MEDS: INSULIN LISPRO 100 UNIT/ML SC SCH ×2 (07:52→12:05)
[2018-08-17] MEDS: AZITHROMYCIN 250 MG TAB PO SCH (08:54)
[2018-08-17] MEDS: cloZAPine 100 MG TAB PO SCH (08:54)
[2018-08-17] MEDS: lamoTRIgine 100 MG TAB PO SCH (08:54)
[2018-08-17] MEDS: PANTOPRAZOLE SODIUM 40 MG TAB PO SCH (08:54)
[2018-08-17] MEDS: ENOXAPARIN 40 MG/0.4 ML SYR SC SCH (08:54)
[2018-08-17] MEDS: NICOTINE 14 MG/24 HR PATCH TD SCH (08:55)
[2018-08-17] MEDS: FLUTICASONE/SALMETER 250/50MCG DISKUS IH SCH (10:06)
[2018-08-17 11:49] VITALS: BP 99/58
--- NOTE | 2018-08-17 12:52 | PDIAF ---
- Diagnosis Diagnosis: PNA Code Status: Full Code - Medication Management Discharge Medications: electronically signed and located in the Home Medication List. 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 follow up with your primary care doctor in 1-2 weeks You have an appointment with Dr. Alta Elias at [address] [address] FridayAugust 24 at 10:00am Call them to change it if you are unable to make it or still in the rehab facility. - Follow Up Care Current Providers and Referrals: NONE *PRIMARY CARE P,. [Primary Care Provider] - As per Instructions
--- NOTE | 2018-08-17 15:13 | GDS ---
[f rep st] DISCHARGE SUMMARY DISCHARGE DIAGNOSES: 1. Acute hypoxemic respiratory failure. 2. Chronic obstructive pulmonary disease exacerbation. 3. Pneumonia. 4. Nicotine dependence. 5. History of schizophrenia. 6. Type 2 diabetes. STUDIES AND PROCEDURES: 1. Chest x-ray. 2. CT angio of the chest. PHYSICAL EXAM: GENERAL: The patient is alert. VITAL SIGNS: Afebrile at 37.2, pulse is 100, respir atory rate is 18, blood pressure 99/50, saturating 90% on room air. I have seen evaluated the patien t on the day of discharge. HOSPITAL COURSE: Patient is a 57-year-old male who presented to the emergency room with complaints o f shortness of breath. He was evaluated and diagnosed with: 1. Acute hypoxemic respiratory failure. This is secondary to parainfluenza virus and rhinovirus. H e was treated with prednisone, as well as supportive management. His symptoms have significantly imp roved. 2. Chronic obstructive pulmonary disease exacerbation. The patient does have a longstanding history of tobacco use. Advair, as well as proton pump inhibitor and steroids have been used during this ho spital course. 3. Pneumonia. This is likely viral in the setting of parainfluenza virus. 4. Nicotine dependence. Cessation has been recommended. 5. Schizophrenia. Patient has continued on his previously prescribed home medications. 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 6. Type 2 diabetes. This is well managed at this time. DISPOSITION: The [facility] and con ditioning. He will follow upin the outpatient setting with his primary care physician and his oil field caser. DISCHARGE MEDICATIONS: Please refer to EMR form. Advair, as well as prednisone are new medications for the patient. I spent greater than 35 minutes in the care, coordination, and management of this patient's dispositi on. /[id number]/MODL
--- NOTE | 2018-08-17 15:13 | ASDISCHSUM ---
Discharge Information Plan Status:SNF Medically Cleared to Leave:08/17/2018 Discharge Date:08/17/2018 CM D/C Disposition:[facility] Facility ADT D/C Disposition:[facility] Facility Projected Discharge Date:08/17/2018 11:00 AM Transportation at D/C:Wheelchair Van Discharge Delay Reason: Follow-Up Date:08/17/2018 11:00 AM Discharge Slot: Final Diagnosis:PNA, COPD Placement Information Referral Type:*Home Health Care Services Referral ID:[id number] Provider Name: Address 1: Phone Number: Address 2: Fax Number: City: Selection Factors: State: Referral Type:*Correction/SNF Referral ID:[id number] Provider Name:[facility] Address 1:[address] [place] [address] Address 2: City:[place] Selection Factors: State:[place] Patient Contact Information Contact Name:YOVANY Relationship:Other Address: Home Phone: Work Phone: City: Alternate Phone: State/Zip Code: Email: Financial Information Financial Class:Medicare Primary Plan Desc:MEDICARE INPATIENT Primary Plan Number:[id number] Secondary Plan Desc:[place] Secondary Plan Number:[id number] Assessment Information [facility] CM Progress Note CM Note CM Note Notes: Pt is a 57 y/o female admitted for shortness of breath. Pt has a schizophrenia diagnose. Pt is currently on Clorazil and it is being prescribed by Cedric Kessler, a psychiatrist here in [place]. Referral made to [facility]. Pt will most likely d/c independent without any needs. CM available for changes. Plan: Independent Date Signed: 08/11/2018 10:56 AM Electronically Signed By:SHERICE Shin [facility] CM Progress Note CM Note CM Note Notes: Spoke with pt in the room. Pt admitted for COPD exacerbation and PNA and may discharge with new home O2. Pt also has schizophrenia and lives alone in an apartment. PT and OT are recommending HHC. RN may also be indicated with new home O2. Pt amenable to [facility]. Referral sent. D/C date TBD. CM to follow. D/C Plan: Home with [facility] pending acceptance. Date Signed: 08/15/2018 04:32 PM Electronically Signed By:Ju Ambrocio [facility] Progress Note CM Note CM Note Notes: CM met with patient, he is likely to discharge tomorrow, O2 sat at 84 this morning. CM asked patient to ask about follow up. He states he is connected to Ba at [employer], he had her contact number in his wallet, and [facility], . CM asked patient to confirm his address and phone number, patient stated his information is in his wallet and he does not remember. CM to place referral to [facility] for RN/PT/OT. CM to follow. D/C Plan: Home with [facility]. Date Signed: 08/16/2018 06:12 PM Electronically Signed By:Mindy Arguelles Intervention Information Intervention Type:*IM-Signed Date of Service:08/17/2018 02:38 PM Patient Type:Inpatient Staff Member:Tanja Nixon Hours: Discipline: Severity: Comment:
== END 2018-08-17 15:32 | DRG 193 ==
LOC: F3E 13:59
PROVIDERS: ADMIT Internal Medicine; ATTEND Internal Medicine
DX: J12.2 Parainfluenza virus pneumonia (principal); J96.01 Acute respiratory failure with hypoxia; J44.1 Chronic obstructive pulmonary disease with (acute) exacerbation; J44.0 Chronic obstructive pulmonary disease with (acute) lower respiratory infection; F17.210 Nicotine dependence, cigarettes, uncomplicated; E11.9 Type 2 diabetes mellitus without complications; F20.9 Schizophrenia, unspecified; Z59.0 Homelessness
CPT/HCPCS: 80159-90; 96374; 97116-GP; 97162-GP; 97165-GO; 97535-GO; J0456; J0696; J1650; J1815; J2060; J2405; J2930; J7512; Q9967